=== PATIENT | female | born 1990 | race Caucasian/White ===

== ENCOUNTER 2018-09-29 11:27 | Inpatient (IN) | payer BC ==
[2018-09-29 12:17] LABS: ADD MAN DIFF? NO
[2018-09-29 12:26] LABS: BASOPHILS % 0.1 % (0.0-2.0); EOSINOPHILS % 0.6 % (0.0-7.0); HEMATOCRIT 39.9 % (37.0-47.0); HEMOGLOBIN 13.3 g/dl (12.0-16.0); LYMPHOCYTES # 1.6 10^3/ul (0.8-2.9); MEAN CORPUSCULAR HEMOGLOBIN 29.1 pg (29.0-33.0); MEAN CORPUSCULAR HGB CONC 33.3 g/dl (32.0-37.0); MEAN CORPUSCULAR VOLUME 87.3 fl (82.0-101.0); MEAN PLATELET VOLUME 11.3 fl (7.4-10.4); MONOCYTE # 0.6 10^3/ul (0.3-0.9); MONOCYTES % 8.8 % (0.0-11.0); NEUTROPHIL # 4.5 10^3/ul (1.6-7.5); NEUTROPHILS % 66.9 % (39.0-77.0); PLATELET COUNT 251 10^3/UL (140-415); RED BLOOD COUNT 4.57 10^6/ul (4.20-5.40); RED CELL DISTRIBUTION WIDTH 13.8 % (11.5-14.5)
[2018-09-29 12:26] LABS: WHITE BLOOD COUNT 6.8 10^3/ul (4.8-10.8)
[2018-09-29] MEDS: AMPICILLIN 2 GM/NS (PMX) 100 ML IV (12:28)
[2018-09-29] MEDS: LACTATED RINGER'S 1,000 ML IV ×2 (12:29→18:37)
[2018-09-29] MEDS ORDERED: BUTORPHANOL 2 MG INJ IV ×2 (12:30)
[2018-09-29] MEDS ORDERED: OXYTOCIN 30 UNITS/LR 500 ML IV ×3 (12:30)
[2018-09-29] MEDS ORDERED: CARBOPROST 250 MCG INJ IM (12:30)
[2018-09-29] MEDS ORDERED: METHYLERGONOVINE 0.2 MG INJ IM (12:30)
[2018-09-29] MEDS ORDERED: MISOPROSTOL 200 MCG TAB PR (12:30)
[2018-09-29] MEDS ORDERED: LIDOCAINE 1% (MPF) 30 ML INJ INJ (12:30)
[2018-09-29 12:48] LABS: INR 0.84; PROTIME 11.6 Sec (11.9-14.9); PT RATIO 0.9
[2018-09-29 12:49] LABS: PARTIAL THROMBOPLASTIN TIME 26.7 Sec (23.0-35.0)
[2018-09-29 13:58] LABS: AMPHETAMINE/METHAMPHETAMINE Negative (NEGATIVE); BARBITURATES Negative (NEGATIVE); BENZODIAZEPINES Negative (NEGATIVE); CANNABINOIDS Negative (NEGATIVE); COCAINE Negative (NEGATIVE); OPIATES Negative (NEGATIVE)
[2018-09-29 15:46] LABS: RUPTURE FETAL MEMBRANES NEGATIVE (NEGATIVE)
[2018-09-29] MEDS ORDERED: AMPICILLIN 1 GM/NS (PMX) 50 ML IV (16:30)
[2018-09-29 22:20] LABS: RAPID PLASMA REAGIN NONREACTIVE (NR)
[2018-09-30] MEDS: LACTATED RINGER'S 1,000 ML IV ×2 (02:55→10:58)
== END 2018-09-30 13:34 | disposition home or self-care (01) | DRG 833 ==
LOC: L-D 11:27
PROVIDERS: Obstetrics & Gynecology
DX: O41.03X0 Oligohydramnios, third trimester, not applicable or unspecified (principal); Z3A.37 37 weeks gestation of pregnancy
CPT/HCPCS: 76815; 76816; 80307; 84112; 85025; 85610; 85730; 86592; 86850; 86900; 86901

== ENCOUNTER 2018-10-02 11:21 | Outpatient (CLI) | payer BC ==
[2018-10-02 12:59] LABS: RUPTURE FETAL MEMBRANES NEGATIVE (NEGATIVE)
== END 2018-10-02 13:12 | disposition home or self-care (01) ==
LOC: OBT 11:21 → L-D 11:22 → OBT 13:12
DX: O62.9 Abnormality of forces of labor, unspecified (principal); Z3A.38 38 weeks gestation of pregnancy
CPT/HCPCS: 76818; 84112

== ENCOUNTER 2018-10-04 08:27 | Inpatient (IN) | payer BC ==
[2018-10-04] MEDS ORDERED: MISOPROSTOL 200 MCG TAB PR (11:00)
[2018-10-04] MEDS ORDERED: OXYTOCIN 30 UNITS/LR 500 ML IV ×3 (11:00)
[2018-10-04] MEDS ORDERED: LIDOCAINE 1% (MPF) 30 ML INJ INJ (11:00)
[2018-10-04] MEDS ORDERED: METHYLERGONOVINE 0.2 MG INJ IM (11:00)
[2018-10-04] MEDS ORDERED: BUTORPHANOL 2 MG INJ IV ×2 (11:00)
[2018-10-04] MEDS ORDERED: CARBOPROST 250 MCG INJ IM (11:00)
[2018-10-04 11:18] LABS: ADD MAN DIFF? NO
[2018-10-04 11:30] LABS: BASOPHILS % 0.1 % (0.0-2.0); EOSINOPHILS % 0.6 % (0.0-7.0); HEMATOCRIT 41.4 % (37.0-47.0); HEMOGLOBIN 13.6 g/dl (12.0-16.0); LYMPHOCYTES # 1.6 10^3/ul (0.8-2.9); LYMPHOCYTES % 22.5 % (15.0-51.0); MEAN CORPUSCULAR HEMOGLOBIN 28.9 pg (29.0-33.0); MEAN CORPUSCULAR HGB CONC 32.9 g/dl (32.0-37.0); MEAN CORPUSCULAR VOLUME 88.1 fl (82.0-101.0); MEAN PLATELET VOLUME 11.2 fl (7.4-10.4); MONOCYTE # 0.4 10^3/ul (0.3-0.9); MONOCYTES % 5.8 % (0.0-11.0); NEUTROPHIL # 5.1 10^3/ul (1.6-7.5); NEUTROPHILS % 70.6 % (39.0-77.0); PLATELET COUNT 228 10^3/UL (140-415); RED CELL DISTRIBUTION WIDTH 13.8 % (11.5-14.5)
[2018-10-04 11:30] LABS: WHITE BLOOD COUNT 7.2 10^3/ul (4.8-10.8)
[2018-10-04 11:52] LABS: INR 0.93; PROTIME 12.6 Sec (11.9-14.9)
[2018-10-04 11:53] LABS: PARTIAL THROMBOPLASTIN TIME 27.2 Sec (23.0-35.0)
[2018-10-04] MEDS: AMPICILLIN 2 GM/NS (PMX) 100 ML IV (12:07)
[2018-10-04] MEDS: LACTATED RINGER'S 1,000 ML IV ×3 (12:07→22:33)
[2018-10-04] MEDS: OXYTOCIN 30 UNITS/LR 500 ML IV (14:07)
[2018-10-04 14:57] LABS: RAPID PLASMA REAGIN NONREACTIVE (NR)
[2018-10-04] MEDS: AMPICILLIN 1 GM/NS (PMX) 50 ML IV ×2 (16:06→20:11)
[2018-10-04] MEDS ORDERED: FENTAnyl 2MCG/ML-ROPIV 0.2% 100 ML (21:51)
[2018-10-04] MEDS ORDERED: NALOXONE (0.4 MG/ML) INJ IV (22:30)
[2018-10-04] MEDS ORDERED: FENTAnyl 2MCG/ML-ROPIV 0.2% 100 ML BAG EPI (22:30)
[2018-10-04] MEDS ORDERED: ONDANSETRON 4 MG INJ IV (22:30)
[2018-10-04] MEDS ORDERED: DIPHENHYDRAMINE 50 MG INJ (23:23)
[2018-10-04] MEDS: DIPHENHYDRAMINE 50 MG INJ IV (23:33)
[2018-10-05] MEDS: LACTATED RINGER'S 1,000 ML IV (00:15)
[2018-10-05] MEDS: AMPICILLIN 1 GM/NS (PMX) 50 ML IV ×3 (00:18→10:26)
[2018-10-05 06:34] LABS: AMPHETAMINE/METHAMPHETAMINE Negative (NEGATIVE); BARBITURATES Negative (NEGATIVE); BENZODIAZEPINES Negative (NEGATIVE); CANNABINOIDS Negative (NEGATIVE); COCAINE Negative (NEGATIVE); OPIATES Negative (NEGATIVE)
[2018-10-05] MEDS: OXYTOCIN 30 UNITS/LR 500 ML IV (07:45)
[2018-10-05] MEDS ORDERED: CARBOPROST 250 MCG INJ IM (08:00)
[2018-10-05] MEDS ORDERED: DIPHENHYDRAMINE 25 MG CAP PO (08:00)
[2018-10-05] MEDS ORDERED: NACL 0.9% 3 ML SYG IV (08:00)
[2018-10-05] MEDS ORDERED: METHYLERGONOVINE 0.2 MG INJ IM (08:00)
[2018-10-05] MEDS ORDERED: MISOPROSTOL 200 MCG TAB PR (08:00)
[2018-10-05] MEDS ORDERED: ONDANSETRON 4 MG INJ IV (08:00)
[2018-10-05] MEDS ORDERED: OXYTOCIN 30 UNITS/LR 500 ML IV (08:00)
[2018-10-05] MEDS: SENNA/DOCUSATE NA (8.6MG/50MG) TAB PO ×2 (09:00→21:37)
[2018-10-05] MEDS: OXYCODONE/ASPIRIN (4.88/325) TAB PO ×2 (09:08→19:14)
[2018-10-05] MEDS: WITCH HAZEL/GLYCERIN PAD PR (10:38)
[2018-10-05] MEDS: BENZOCAINE 20% 56 ML SPRAY TOP (10:38)
[2018-10-05] MEDS: LANOLIN HPA 1 PKT TOP (10:38)
[2018-10-05] MEDS: IBUPROFEN 600 MG TAB PO ×2 (12:13→17:35)
[2018-10-06] MEDS: IBUPROFEN 600 MG TAB PO ×5 (00:20→23:41)
[2018-10-06] MEDS: OXYCODONE/ASPIRIN (4.88/325) TAB PO ×4 (00:21→15:13)
[2018-10-06 08:17] LABS: ADD MAN DIFF? NO
[2018-10-06 08:19] LABS: WHITE BLOOD COUNT 11.9 10^3/ul (4.8-10.8)
[2018-10-06 08:19] LABS: BASOPHILS % 0.3 % (0.0-2.0); EOSINOPHILS # 0.1 10^3/ul (0.0-0.5); EOSINOPHILS % 0.8 % (0.0-7.0); HEMATOCRIT 35.9 % (37.0-47.0); HEMOGLOBIN 11.9 g/dl (12.0-16.0); LYMPHOCYTES # 2.6 10^3/ul (0.8-2.9); LYMPHOCYTES % 21.6 % (15.0-51.0); MEAN CORPUSCULAR HEMOGLOBIN 29.9 pg (29.0-33.0); MEAN CORPUSCULAR HGB CONC 33.1 g/dl (32.0-37.0); MEAN CORPUSCULAR VOLUME 90.2 fl (82.0-101.0); MONOCYTE # 0.8 10^3/ul (0.3-0.9); MONOCYTES % 6.4 % (0.0-11.0); NEUTROPHIL # 8.4 10^3/ul (1.6-7.5); NEUTROPHILS % 70.5 % (39.0-77.0); PLATELET COUNT 198 10^3/UL (140-415); RED BLOOD COUNT 3.98 10^6/ul (4.20-5.40); RED CELL DISTRIBUTION WIDTH 14.1 % (11.5-14.5)
[2018-10-06] MEDS: SENNA/DOCUSATE NA (8.6MG/50MG) TAB PO ×2 (09:24→21:14)
[2018-10-06] MEDS: LANOLIN HPA 1 PKT TOP (12:24)
[2018-10-07] MEDS: OXYCODONE/ASPIRIN (4.88/325) TAB PO (00:25)
[2018-10-07] MEDS: IBUPROFEN 600 MG TAB PO (06:58)
[2018-10-07] MEDS: SENNA/DOCUSATE NA (8.6MG/50MG) TAB PO (09:00)
[2018-10-07] MEDS: MEASLES,MUMPS,RUBELLA VACCINE INJ SC* (09:00)
== END 2018-10-07 12:40 | disposition home or self-care (01) | DRG 807 ==
LOC: OBT 08:27 → PP1 10-05 09:46 → L-D 08:27 → OBT 10:31 → L-D 10:20
PROVIDERS: Obstetrics & Gynecology
PROC: 10907ZC Drainage of Amniotic Fluid, Therapeutic from Products of Conception, Via Natural or Artificial Opening (ICD-10-PCS; 2018-10-04)
PROC: 10E0XZZ Delivery of Products of Conception, External Approach (ICD-10-PCS; principal; 2018-10-05)
PROC: 0HQ9XZZ Repair Perineum Skin, External Approach (ICD-10-PCS; 2018-10-05)
DX: O41.03X0 Oligohydramnios, third trimester, not applicable or unspecified (principal); Z37.0 Single live birth; O70.0 First degree perineal laceration during delivery; Z3A.38 38 weeks gestation of pregnancy
CPT/HCPCS: 62322; 76815; 76818; 80307; 85025; 85610; 85730; 86592; 86850; 86900; 86901

== ENCOUNTER 2019-02-19 07:20 | Emergency (ER) | payer BC ==
[2019-02-19 07:50] LABS: URINE PH (Dip) POC 5.5 (5.0-8.5)
[2019-02-19 07:50] LABS: URINE BLOOD (Dip) POC 2+ (NEGATIVE); URINE GLUCOSE (Dip) POC Negative (NEGATIVE); URINE KETONES (Dip) POC Negative (NEGATIVE); URINE LEUKOCYTE EST (Dip) POC 2+ (NEGATIVE); URINE NITRITE (Dip) POC Negative (NEGATIVE); URINE TOTAL PROTEIN POC 1+ (NEGATIVE)
== END 2019-02-19 08:31 | disposition home or self-care (01) ==
LOC: FTE 07:20
DX: N39.0 Urinary tract infection, site not specified (principal)
CPT/HCPCS: 81003; 81025; 99283